=== PATIENT | male | born 1960 | race African-American/Black ===

== ENCOUNTER 2018-09-22 10:57 | Emergency (ER) | payer BC, MEDICARE ==
[2018-09-22 11:53] LABS: Anion Gap 10 mmol/L (10-20); BUN (Urea Nitrogen) 18 mg/dL (8.4-25.7); Calc. Creatinine Clearance 0 mL/min (70-130); Calcium 9.5 mg/dL (7.8-10.44); Carbon Dioxide 27 mmol/L (22-29); Chloride 106 mmol/L (98-107); Estimated GFR-MDRD 76; Glucose 122 mg/dL (70-105); Potassium 3.8 mmol/L (3.5-5.1); Sodium 139 mmol/L (136-145)
== END 2018-09-22 12:20 | disposition home or self-care (01) ==
LOC: ERS 10:57
DX: M79.10 Myalgia, unspecified site (principal); E78.5 Hyperlipidemia, unspecified; I10 Essential (primary) hypertension; Z79.899 Other long term (current) drug therapy
CPT/HCPCS: 36415; 80048; 83605; 99283

== ENCOUNTER 2019-11-28 06:20 | Observation (INO) | payer MEDICARE ==
--- NOTE | 2019-11-28 06:59 | RAD ---
PORTABLE CHEST: Date: 11/28/2019 PROVIDED CLINICAL HISTORY: Vomiting. FINDINGS: Comparison with 07/16/2005. Cardiac and mediastinal silhouette is within normal limits. Lungs appear clear. No pleural fluid or p neumothorax apparent. IMPRESSION: No evidence for an acute cardiopulmonary process. POS: MOLINA
[2019-11-28 07:03] LABS: #Basophils 0.1 thou/uL (0.0-0.2); #Eosinphils 0.5 thou/uL (0.0-0.7); #Lymphocytes 2.2 thou/uL (1.20-3.40); #Monocytes 0.6 thou/uL (0.11-0.59); %Eosinophils 7.3 % (0.0-10.0); %Lymphocytes 29.8 % (21.0-51.0); %Monocytes 7.9 % (0.0-10.0); Hemoglobin 14.5 g/dL (14.0-18.0); Mean Corpuscular HGB CONC 34.7 g/dL (32.0-36.0); Mean Corpuscular Volume 92.2 fL (78.0-98.0); Mean Platelet Volume 7.6 fL (7.4-10.4); Platelet Count 264 thou/uL (130-400); RBC Distribution Width 12.1 % (11.5-14.5); Red Blood Cell (RBC) Count 4.53 mill/uL (4.70-6.10); White Blood Cell (WBC) Count 7.4 thou/uL (4.8-10.8)
[2019-11-28 07:08] LABS: ALT (SGPT) 35 U/L (8-55); AST (SGOT) 26 U/L (5-34); Alkaline Phosphatase 64 U/L (40-110); Anion Gap 12 mmol/L (10-20); BUN (Urea Nitrogen) 14 mg/dL (8.4-25.7); Bilirubin, Total 0.5 mg/dL (0.2-1.2); CK (CPK) 620 U/L (30-200); Calc. Creatinine Clearance 0 mL/min (70-130); Calcium 9.3 mg/dL (7.8-10.44); Carbon Dioxide 24 mmol/L (23-31); Chloride 107 mmol/L (98-107); Estimated GFR-MDRD 84; Globulin 3.1 g/dL (2.4-3.5); Glucose 107 mg/dL (80-115); Lipase 50 U/L (8-78); Potassium 3.6 mmol/L (3.5-5.1); Protein, Total 7.1 g/dL (5.8-8.1); Sodium 139 mmol/L (136-145)
[2019-11-28] MEDS ORDERED: Aspirin Chewable 81 MG TAB ONE (07:43)
[2019-11-28] MEDS ORDERED: Acetaminophen 325 MG TAB PO PRN (08:44)
[2019-11-28 09:23] LABS: #Eosinphils 0.4 thou/uL (0.0-0.7); #Lymphocytes 1.4 thou/uL (1.20-3.40); #Monocytes 0.5 thou/uL (0.11-0.59); #Neutrophils 4.1 thou/uL (1.40-6.50); %Basophils 0.7 % (0.0-1.0); %Eosinophils 6.6 % (0.0-10.0); %Monocytes 7.7 % (0.0-10.0); %Neutrophils 64.1 % (42.0-75.0); Hemoglobin 14.7 g/dL (14.0-18.0); Mean Corpuscular HGB CONC 32.8 g/dL (32.0-36.0); Mean Corpuscular Hemoglobin 30.8 pg (27.0-31.0); Mean Corpuscular Volume 93.9 fL (78.0-98.0); Mean Platelet Volume 7.1 fL (7.4-10.4); Platelet Count 262 thou/uL (130-400); RBC Distribution Width 12.1 % (11.5-14.5); Red Blood Cell (RBC) Count 4.78 mill/uL (4.70-6.10); White Blood Cell (WBC) Count 6.4 thou/uL (4.8-10.8)
[2019-11-28 09:43] LABS: Cardiac Risk 3.5 (Less than 4.5)
[2019-11-28 09:50] LABS: Troponin I 0.014 ng/mL (< 0.028)
[2019-11-28] MEDS: Aspirin 81 mg Enteric Coated Tablet PO SCH (10:27)
[2019-11-28] MEDS ORDERED: Regadenoson 0.4 MG/5 ML SYRINGE ONE (11:22)
[2019-11-28 13:19] LABS: Troponin I Less than 0.010 ng/mL (< 0.028)
[2019-11-28] MEDS: Sodium Chloride 0.9% 1,000 ML IV SCH (13:33)
[2019-11-28 16:54] LABS: Bacteria/HPF None Seen HPF (None Seen); RBC/HPF 0-3 HPF (0-3); Squamous Epithelial None Seen HPF (0-3); WBC/HPF 0-3 HPF (0-3)
[2019-11-28 17:09] LABS: Amphetamine Not Detected (NotDetected); Barbiturates Screen Not Detected (NotDetected); Benzodiazepine Screen Not Detected (NotDetected); Cocaine Metabolite Screen Not Detected (NotDetected); Medtox Control Line Valid? VALID (VALID); Medtox Reader # READER 4; Methadone Not Detected (NotDetected); Methamphetamine Not Detected (NotDetected); Opiate Screen Not Detected (NotDetected); Oxycodone Screen Not Detected (NotDetected); Phencyclidine (PCP) Not Detected (NotDetected); THC/Cannabinoid Screen Not Detected (NotDetected); Tricyclic Screen Not Detected (NotDetected)
[2019-11-28 17:54] VITALS: BMI 29.0
--- NOTE | 2019-11-28 18:39 | NM ---
EXAM: NM Cardiac Stress W EF WF PROVIDED CLINICAL HISTORY: Chest pain COMPARISON: None FINDINGS: There is a small area of diminished uptake of radiotracer seen within the distal anteroseptal wall an d at the apex on the stress and resting acquisitions. No significant reversible defect is appreciated. Gated images show normal ventricular wall motion and wall thickening. Calculated left ve ntricular ejection fraction is 62%. IMPRESSION: 1. Small focal defect in the distal anteroseptal wall and apex which probably represents a fixed defe ct. There is normal ventricular wall motion and wall thickening in this region. This probably represents an area of mild scarring or apical thinning. No significant reversible defect is seen. 2. Normal LVEF of 62%
--- NOTE | 2019-11-28 20:39 | PDOC.HHP ---
Hospitalist HPI - History of Present Illness chest pain History of Present Illness: Patient presents complaining of left sided chest pain which he describes as a "tingling sensation" which he rates a 6/10 in severity. It was nonradiating but he does report chronic left sided pain due to trauma in the past. He has no chest pain at present. States it happened early this morning while he was still in bed and lasted a few seconds. He has had one recurring episode since then, also lasting seconds. Denies any associated nausea/vomiting, shortness of breath or diaphoresis. Denies any cough or hemoptysis. ED Course: In the ED he had an EKG done showing NSR, HR 55. No ST changes or T wave abnormalities. Chest films negative, no infiltrates, no pneumothorax, no cardiomegaly, no effusion. Troponin negative x 3. CK 620. Heart score of 4, therefore admitted for ACS rule out. Hospitalist ROS - Review of Systems Constitutional: denies: fever, chills, sweats, weakness, malaise, other Eyes: denies: pain, vision change, conjunctivae inflammation, eyelid inflammation, redness, other ENT: denies: ear pain, ear discharge, nose pain, nose discharge, nose congestion , mouth pain, mouth swelling, throat pain, throat swelling, other Respiratory: denies: cough, dry, shortness of breath, hemoptysis, SOB with excertion, pleuritic pain, sputum, wheezing, other Cardiovascular: reports: chest pain. denies: palpitations, orthopnea, paroxysmal noc. dyspnea, edema, light headedness, other Gastrointestinal: denies: nausea, vomiting, abdominal pain, diarrhea, constipation, melena, hematochezia, other Genitourinary: denies: dysuria, frequency, incontinence, hematuria, retention, other Musculoskeletal: reports: neck pain (chronic). denies: shoulder pain, arm pain , back pain, hand pain, leg pain, foot pain, other Skin: denies: rash, lesions, elizabeth, bruising, other Neurological: denies: weakness, numbness, incoordination, change in speech, confusion, seizures, other - Medication Medications: ALLERGIES: No known drug allergies. CURRENT MEDICATIONS: lisinopril TABLET : Strength - 20 mg : ORAL Patient Dose: once a day (in the morning). simvastatin TABLET : Strength - 20 mg : ORAL Patient Dose: once a day (in the morning). Active Medications Generic Name Dose Route Start Last Admin Trade Name Michelle PRN Reason Stop Dose Admin Aspirin 81 mg 11/28/19 09:00 11/28/19 10:27 Ecotrin PO Not Given DAILY [facility] Sodium Chloride 1,000 mls @ 65 mls/hr 11/28/19 12:30 11/28/19 13:33 Normal Saline 0.9% IV 1,000 mls .[id number] [facility] Administration Hospitalist History - Past Medical History Source: patient Cardiac: reports: HTN, Hyperlipidemia Gastrointestinal: reports: GERD - Past Surgical History Past Surgical History: reports: Arthroscopy (left knee) Other Surgical History: Right rotator cuff repair - Family History Family History: reports: no pertinent history - Social History Smoking Status: Never smoker Alcohol: reports: None Drugs: reports: none Living Situation: With Family Activity level: independent ambulation - Exam General Appearance: NAD, awake alert Eye: PERRL, anicteric sclera ENT: normocephalic atraumatic, no oropharyngeal lesions, moist mucosa Neck: supple, symmetric, no lymphadenopathy Heart: RRR, no murmur, no rubs, normal peripheral pulses Respiratory: CTAB, no wheezes, no rales, no ronchi, normal chest expansion Gastrointestinal: soft, non-tender, non-distended, no guarding, no rigidity Extremities: no edema Skin: normal turgor, no lesions, no rashes Neurological: cranial nerve grossly intact, normal sensation to touch, no weakness Musculoskeletal: normal tone, normal strength, no muscle wasting Psychiatric: normal affect, normal behavior, A&O x 3 Hospitalist Results - Labs Result Diagrams: 11/28/19 09:14 11/28/19 06:40 Lab results: WBC 6.4 thou/uL (4.8-10.8) 11/28/19 09:14 Hgb 14.7 g/dL (14.0-18.0) 11/28/19 09:14 Hct 44.9 % (42.0-52.0) 11/28/19 09:14 MCV 93.9 fL (78.0-98.0) 11/28/19 09:14 Plt Count 262 thou/uL (130-400) 11/28/19 09:14 Neutrophils % 64.1 % (42.0-75.0) 11/28/19 09:14 Sodium 139 mmol/L (136-145) 11/28/19 06:40 Potassium 3.6 mmol/L (3.5-5.1) 11/28/19 06:40 Chloride 107 mmol/L (98-107) 11/28/19 06:40 Carbon Dioxide 24 mmol/L (23-31) 11/28/19 06:40 BUN 14 mg/dL (8.4-25.7) 11/28/19 06:40 Creatinine 1.08 mg/dL (0.7-1.3) 11/28/19 06:40 Glucose 107 mg/dL (80-115) 11/28/19 06:40 Calcium 9.3 mg/dL (7.8-10.44) 11/28/19 06:40 Total Bilirubin 0.5 mg/dL (0.2-1.2) 11/28/19 06:40 AST 26 U/L (5-34) 11/28/19 06:40 ALT 35 U/L (8-55) 11/28/19 06:40 Alkaline Phosphatase 64 U/L (40-110) 11/28/19 06:40 Creatine Kinase 620 U/L (30-200) H 11/28/19 06:40 Troponin I 0.015 ng/mL (< 0.028) 11/28/19 18:21 B-Natriuretic Peptide 52.1 pg/mL (0-100) 11/28/19 12:29 Serum Total Protein 7.1 g/dL (5.8-8.1) 11/28/19 06:40 Albumin 4.0 g/dL (3.4-4.8) 11/28/19 06:40 Lipase 50 U/L (8-78) 11/28/19 06:40 Urine RBC 0-3 HPF (0-3) 11/28/19 16:40 Urine WBC 0-3 HPF (0-3) 11/28/19 16:40 Ur Squamous Epith Cells None Seen HPF (0-3) 11/28/19 16:40 Urine Bacteria None Seen HPF (None Seen) 11/28/19 16:40 Hospitalist H&P A/P - Problem (1) Chest pain Code(s): R07.9 - CHEST PAIN, UNSPECIFIED Status: Acute (2) Elevated CK Status: Acute (3) Hypertension Code(s): I10 - ESSENTIAL (PRIMARY) HYPERTENSION Status: Chronic (4) Hyperlipidemia Code(s): E78.5 - HYPERLIPIDEMIA, UNSPECIFIED Status: Chronic (5) Chronic neck pain Code(s): M54.2 - CERVICALGIA; G89.29 - OTHER CHRONIC PAIN Status: Chronic (6) GERD (gastroesophageal reflux disease) Code(s): K21.9 - GASTRO-ESOPHAGEAL REFLUX DISEASE WITHOUT ESOPHAGITIS Status: Chronic - Plan Plan: Cardiac monitoring. Trend troponins. Add-on d-dimer. Cardiac stress test. Add-on BNP. Urine drug screen/UA. Monitor BP, reconcile home medications when verified. Continue aspirin and statin. GI prophylaxis with Famotidine. DVT Prophylaxis: patient ambulatory. CODE STATUS FULL Surrogate decision maker is his Cierra Hankins. Discussed with Dr. Hyde who agrees with plan as above.
[2019-11-28] MEDS ORDERED: Simvastatin 40 MG TAB PO SCH ×2 (21:00)
[2019-11-28] MEDS ORDERED: Atorvastatin Calcium 20 MG TAB PO SCH (21:00)
[2019-11-28] MEDS ORDERED: Atorvastatin Calcium 10 MG TAB PO SCH (21:00)
[2019-11-29 03:33] VITALS: TEMP 98.4
[2019-11-29 04:39] LABS: Hemoglobin A1c 5.7 % (4.0-6.0)
[2019-11-29] MEDS: Sodium Chloride 0.9% 1,000 ML IV SCH (04:55)
[2019-11-29] MEDS: Aspirin 81 mg Enteric Coated Tablet PO SCH (08:21)
[2019-11-29] MEDS ORDERED: Lisinopril/Hydrochlorothiazide 20/25 mg Tablet PO SCH (09:00)
[2019-11-29] MEDS ORDERED: Aspirin 325 mg Enteric Coated Tablet PO SCH (09:00)
[2019-11-29 09:17] VITALS: BP 139/70
--- NOTE | 2019-11-29 23:40 | DIS ---
DATE OF ADMISSION: 11/28/2019 DATE OF DISCHARGE: 11/29/2019 DISCHARGE DIAGNOSES: 1. Chest pain. 2. Hypertension. 3. Hyperlipidemia. 4. Mild rhabdomyolysis. 5. Chronic neck pain. 6. Gastroesophageal reflux disease. HISTORY OF PRESENT ILLNESS: The patient is a 59-year-old male, who presented to the hospital reporting some central chest pain, described as a tingling sensation, rated as a 6/10. The patient reports that he has had some chronic pain issues in this area, partly due to chronic neck issues and some reflux. His initial workup was notable for a slight bump in his CK at 620 with normal troponins and nonischemic EKG. HOSPITAL COURSE: The patient was admitted to the hospital in observation status on telemetry, had a negative drug screen, had serial troponins x5, which were all negative. BNP was normal at 52.1. Cholesterol panel with HDL of 50, LDL 109, total of 177, triglycerides 92. Lipase was normal. The patient underwent a stress test with nuclear medicine, which revealed possibly some apical thinning or scar which was minimal and non reversible with a normal ejection fraction of 62%. With that, the patient reported his symptoms had completely resolved and he at this point was convinced that this was reflux symptoms. He was felt to be stable for discharge to home. PHYSICAL EXAMINATION: VITAL SIGNS: On the day of discharge, temperature was 98.4, heart rate 48 to 58 in sinus bradycardia, respirations 16, room air sat of 96%, BP 139/70. GENERAL: The patient was awake and alert, appeared healthy. HEART: Regular. LUNGS: Clear. ABDOMEN: Benign. EXTREMITIES: No edema. DISPOSITION: The patient is discharged to home. He is to continue his usual home medications. He is to be on a heart healthy diet. His activity is as tolerated. He is to follow up with Dr. Ledezma in the next 1 to 2 weeks and can return to the hospital at anytime should he have the need to do so. Job ID: [id number]
== END 2019-11-29 11:15 | disposition home or self-care (01) ==
LOC: ERS 06:20 → 2NO 10:24
PROVIDERS: ADMIT Internal Medicine; ATTEND Internal Medicine
DX: R07.9 Chest pain, unspecified (principal); I10 Essential (primary) hypertension; E78.5 Hyperlipidemia, unspecified; M62.82 Rhabdomyolysis; G89.29 Other chronic pain; M54.2 Cervicalgia; K21.9 Gastro-esophageal reflux disease without esophagitis; Z79.899 Other long term (current) drug therapy
CPT/HCPCS: 71045; 78452; 80061; 80306; 81015; 82550; 83036; 83690; 83735; 83880; 84484 ×2; 85379; 93005; 93017; 94760 ×2; 99285; A9500; 36415; 80053; 84443; 85025; G0378; J2785

== ENCOUNTER 2020-11-17 23:00 | Emergency (ER) | payer OTHER, MEDICARE ==
[2020-11-18] MEDS ORDERED: Ibuprofen 800 MG TAB ONE (01:03)
== END 2020-11-18 01:22 | disposition home or self-care (01) ==
LOC: ERS 23:00
DX: M25.562 Pain in left knee (principal); M25.561 Pain in right knee; E78.5 Hyperlipidemia, unspecified; I10 Essential (primary) hypertension; V89.2XXA Person injured in unspecified motor-vehicle accident, traffic, initial encounter

== ENCOUNTER 2021-06-29 16:20 | Emergency (ER) | payer MEDICARE ==
[2021-06-29 16:47] LABS: #Basophils 0.1 thou/uL (0.0-0.2); #Eosinphils 0.4 thou/uL (0.0-0.7); #Lymphocytes 1.8 thou/uL (1.20-3.40); #Monocytes 0.5 thou/uL (0.11-0.59); #Neutrophils 7.7 thou/uL (1.40-6.50); %Basophils 0.5 % (0.0-1.0); %Eosinophils 3.7 % (0.0-10.0); %Lymphocytes 17.1 % (21.0-51.0); %Monocytes 4.7 % (0.0-10.0); Hemoglobin 14.2 g/dL (14.0-18.0); Mean Corpuscular HGB CONC 33.2 g/dL (32.0-36.0); Mean Corpuscular Hemoglobin 30.9 pg (27.0-31.0); Mean Corpuscular Volume 93.1 fL (78.0-98.0); Mean Platelet Volume 6.9 fL (7.4-10.4); Platelet Count 277 thou/uL (130-400); Red Blood Cell (RBC) Count 4.58 mill/uL (4.70-6.10); White Blood Cell (WBC) Count 10.4 thou/uL (4.8-10.8)
[2021-06-29 17:13] LABS: ALT (SGPT) 26 U/L (8-55); AST (SGOT) 23 U/L (5-34); Alkaline Phosphatase 66 U/L (40-110); Anion Gap 12 mmol/L (10-20); BUN (Urea Nitrogen) 13 mg/dL (8.4-25.7); Bilirubin, Total 0.7 mg/dL (0.2-1.2); Calc. Creatinine Clearance 0 mL/min (70-130); Calcium 9.5 mg/dL (7.8-10.44); Carbon Dioxide 27 mmol/L (23-31); Chloride 103 mmol/L (98-107); Globulin 2.9 g/dL (2.4-3.5); Glucose 114 mg/dL (80-115); Lipase 46 U/L (8-78); Protein, Total 6.9 g/dL (5.8-8.1); Sodium 138 mmol/L (136-145)
[2021-06-29 19:11] LABS: Troponin I Less than 0.010 ng/mL (< 0.028)
== END 2021-06-29 19:34 | disposition home or self-care (01) ==
LOC: ERS 16:20
DX: R07.89 Other chest pain (principal); I10 Essential (primary) hypertension; E78.5 Hyperlipidemia, unspecified
CPT/HCPCS: 36415; 71045; 80053; 83690; 84484; 85025; 93005; 94760

== ENCOUNTER 2021-12-24 08:12 | Emergency (ER) | payer MEDICARE | END 2021-12-24 08:55 | disposition home or self-care (01) | LOC: ERS 08:12 | DX: L72.3 Sebaceous cyst (principal); I10 Essential (primary) hypertension; E78.5 Hyperlipidemia, unspecified; Z79.899 Other long term (current) drug therapy | CPT/HCPCS: 99282 ==